=== PATIENT | male | born 1985 | race African-American/Black ===

== ENCOUNTER 2019-05-20 02:09 | Emergency (ER) | payer OTHER ==
[~2019-05-20] VITALS: Ht 185.4 cm; Wt 120.2 kg
[2019-05-20 02:22] VITALS: BP 128/88
[2019-05-20] MEDS ORDERED: AMOX1TAB61 PO (02:34)
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
[2019-05-20] MEDS ORDERED: DEXAMETHASONE 4 MG TABLET PO ONE (02:45)
[2019-05-20] MEDS ORDERED: AMOXICILLIN/K CLAV 875/125MG TABLET. PO ONE (02:45)
== END 2019-05-20 02:47 | disposition home or self-care (01) ==
LOC: ER 02:09
DX: H66.92 Otitis media, unspecified, left ear (principal); J02.9 Acute pharyngitis, unspecified
CPT/HCPCS: 99283; J8540

== ENCOUNTER 2019-06-03 09:29 | Emergency (ER) | payer OTHER ==
[~2019-06-03] VITALS: Ht 185.4 cm; Wt 117.9 kg
[~2019-06-03 09:29] MED LIST: AMOX1TAB61 PO
[2019-06-03 09:38] VITALS: BP 134/89
[2019-06-03] MEDS ORDERED: PRED50TA PO (10:04)
[2019-06-03] MEDS ORDERED: MELO7.5T29 PO (10:04)
[2019-06-03] MEDS ORDERED: D-ME118S2 PO (10:04)
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
== END 2019-06-03 10:15 | disposition home or self-care (01) ==
LOC: ER 09:29
DX: J02.9 Acute pharyngitis, unspecified (principal); H92.02 Otalgia, left ear; F17.210 Nicotine dependence, cigarettes, uncomplicated
CPT/HCPCS: 87070; 87880; 99283